=== PATIENT | male | born 1965 ===

== ENCOUNTER 2025-03-02 07:45 | Inpatient (IN) | payer OTHER ==
[~2025-03-02] VITALS: Ht 172.7 cm; Wt 87.1 kg
[2025-03-02 12:48] LABS: URINE APPEARANCE Clear; URINE BACTERIA 8.3 uL (0.0-1933); URINE BILIRRUBIN Negative (NEGATIVE); URINE BLOOD Negative; URINE CAST 0.00 uL (0.0-1.40); URINE COLOR Yellow; URINE EPITHELIAL CELLS 0.7 uL (0.0-38.8); URINE GLUCOSE Negative (NEGATIVE); URINE KETONE Negative (NEGATIVE); URINE LEUKOCYTE Negative; URINE NITRATE Negative; URINE PROTEIN Negative (NEGATIVE); URINE RBC 4.1 uL (0.0-20.8); URINE UROBILINOGEN 0.2 E.U./dl; URINE WBC 0.7 uL (0.0-23.2)
[2025-03-02 13:27] LABS: ALT/SGPT 43.0 U/L (12-78); AST/SGOT 27.0 U/L (15-37); BILIRUBIN TOTAL 0.64 mg/dL (0.3-1.2); BUN CREA RATIO 16.0 (7.0-25.0); CREATININE SERUM 0.8 mg/dL (0.70-1.30); GFR 98.6; GLOBULINA 3.8 G/DL (2.4-3.5); GLUCOSE FASTING 148.0 mg/dL (65-100); OSMOLALITY SERUM 286.0 MOSM/KG (275-295)
[2025-03-02 14:05] LABS: INR 1.02
[2025-03-02 14:15] LABS: BASO % 1.2 % (0.1-1.2); EOS # 0.20 (0.04-0.54); EOS % 4.1 % (0.7-7.0); LYMPH # 1.65 (1.18-3.74); LYMPH % 33.7 % (19.3-53.1); MEAN PLATELET VOLUME 9.20 fl (9.4-12.4); MONO # 0.41 (0.24-0.82); MONO % 8.4 % (4.7-12.5); NEUT # 2.56 (1.56-6.13); NEUT % 52.4 % (34.0-71.1); RED CELL DISTRIBUTION WIDTH 14.2 % (11.6-14.4)
[2025-03-02 14:39] LABS: RH POSITIVE
[2025-03-02] MEDS ORDERED: LOSARTAN POTAS100 MG PO (15:00)
[2025-03-02] MEDS ORDERED: CRESTOR 20 MG (15:00)
[2025-03-02] MEDS ORDERED: HYDROCHLOROTH12.5 M2 PO (15:00)
[2025-03-02] MEDS ORDERED: NORVASC5 MG (15:00)
[2025-03-02] MEDS ORDERED: ADULT ASPIRIN81 MG (15:01)
[2025-03-02] MEDS ORDERED: METFORMIN HCL1000 M2 (15:01)
[2025-03-02 15:02] VITALS: BP 134/87
[2025-03-09] MEDS ORDERED: TRANEXAMIC ACID 100MG/1ML (1000MG) AMPUL ONE (11:43)
[2025-03-09] MEDS ORDERED: CEFAZOLIN SODIUM 1,000 MG VIAL ONE (11:46)
[2025-03-09] MEDS ORDERED: hydrALAZINE HCL 20 MG VIAL IV PRN (16:00)
[2025-03-09] MEDS ORDERED: INSULIN LISPRO 1,000 UNIT/10 ML UNITS SUBCUTANEO PRN (16:00)
[2025-03-09] MEDS ORDERED: DEXTROSE 50 % IN WATER 0.5 G/ML VIAL IV PRN (16:00)
[2025-03-09] MEDS ORDERED: BUPIVACAINE HCL/MPF 0.5% 30ML VIAL ONE (17:16)
[2025-03-09] MEDS ORDERED: ISOPROPYL ALCOHOL 30 ML OUNCE TOP ONE ×2 (17:16→18:30)
[2025-03-09] MEDS ORDERED: LIDOCAINE HCL 1%/EPINEPHRINE 20ML VIAL IJ ONE ×2 (17:16→18:30)
[2025-03-09] MEDS ORDERED: KETOROLAC TROMETHAMINE 60 MG VIAL IM ONE ×2 (17:16→18:30)
[2025-03-09] MEDS ORDERED: VANCOMYCIN HCL 1,000 MG VIAL ONE (17:17)
[2025-03-09] MEDS ORDERED: BUPIVACAINE HCL 30 ML VIAL IJ ONE (18:30)
[2025-03-09] MEDS ORDERED: CEFAZOLIN SODIUM 1,000 MG VIAL IV ONE (18:30)
[2025-03-09] MEDS ORDERED: MORPHINE SULFATE 4 MG/ML CARTRIDGE IV ONE (18:30)
[2025-03-09] MEDS ORDERED: TRANEXAMIC ACID 100MG/1ML (1000MG) AMPUL IV ONE ×2 (18:30)
[2025-03-09] MEDS ORDERED: VANCOMYCIN HCL 1,000 MG VIAL IR ONE (18:30)
[2025-03-09] MEDS ORDERED: MORPHINE SULFATE 4 MG/ML CARTRIDGE IV PRN (23:00)
[2025-03-09] MEDS ORDERED: SODIUM CHLORIDE 0.45 % 1,000 ML IV SCH (23:15)
[2025-03-10] MEDS ORDERED: CEFAZOLIN SODIUM 1,000 MG VIAL IV SCH
[2025-03-10 06:31] LABS: BASO % 0.2 % (0.1-1.2); EOS # 0.01 (0.04-0.54); EOS % 0.1 % (0.7-7.0); LYMPH # 1.10 (1.18-3.74); LYMPH % 13.4 % (19.3-53.1); MEAN PLATELET VOLUME 9.30 fl (9.4-12.4); MONO # 0.62 (0.24-0.82); MONO % 7.5 % (4.7-12.5); NEUT # 6.44 (1.56-6.13); NEUT % 78.4 % (34.0-71.1); RED CELL DISTRIBUTION WIDTH 14.1 % (11.6-14.4)
[2025-03-10] MEDS ORDERED: GABAPENTIN 300 MG CAPSULE PO ONE (08:11)
[2025-03-10] MEDS ORDERED: CEFAZOLIN SODIUM 1,000 MG VIAL ONE ×2 (08:11→16:07)
[2025-03-10] MEDS ORDERED: PERCOCET 5-3251 EACH PO (08:51)
[2025-03-10] MEDS ORDERED: ELIQUIS2.5 MG PO (08:51)
[2025-03-10] MEDS ORDERED: DUI500 PO (08:51)
[2025-03-10] MEDS ORDERED: APIXABAN 2.5 MG TABLET PO SCH (09:00)
[2025-03-10] MEDS ORDERED: ROSUVASTATIN CALCIUM 10 MG TABLET PO SCH (09:00)
[2025-03-10] MEDS ORDERED: LOSARTAN/HYDROCHLOROTHIAZIDE 1 TAB TABLET PO SCH (09:00)
[2025-03-10] MEDS ORDERED: AMLODIPINE BESYLATE 5 MG TABLET PO SCH (09:00)
[2025-03-10] MEDS ORDERED: ROSUVASTATIN CALCIUM 20 MG TABLET PO SCH (09:00)
[2025-03-10] MEDS ORDERED: INSULIN LISPRO 1,000 UNIT/10 ML UNITS SUBCUTANEO ONE (13:55)
[2025-03-10] MEDS ORDERED: Cyanocobalamin/Mecobalamin 1 TAB.SL SL SCH (18:10)
[2025-03-10] MEDS ORDERED: SOD FERRIC GLUC COMPLX/SUCROSE 62.5 MG/5 ML AMPUL IV SCH (18:10)
[2025-03-10 18:25] VITALS: BP 107/68; O2SAT 95
[2025-03-11 01:26] VITALS: BP 102/60; O2SAT 96
[2025-03-11 11:06] VITALS: BP 123/77; O2SAT 95
[2025-03-11 16:00] VITALS: BP 115/76; O2SAT 95
== END 2025-03-11 19:15 | DRG 470 ==
LOC: SURH 03-09 07:45 → EDBD 03-09 07:45 → O/R 03-09 11:00 → SURH 03-09 17:15
PROVIDERS: ADMIT Orthopaedic Surgery; ATTEND Orthopaedic Surgery
PROC: 0MNN0ZZ Release Right Knee Bursa and Ligament, Open Approach (ICD-10-PCS; 2025-03-09)
PROC: 0SRC0JZ Replacement of Right Knee Joint with Synthetic Substitute, Open Approach (ICD-10-PCS; principal; 2025-03-09 17:15)
DX: M17.11 Unilateral primary osteoarthritis, right knee (principal); M22.11 Recurrent subluxation of patella, right knee; I10 Essential (primary) hypertension; E11.9 Type 2 diabetes mellitus without complications; Z79.4 Long term (current) use of insulin